=== PATIENT | male | born 1945 | race Caucasian/White ===

== ENCOUNTER 2024-12-21 11:48 | Emergency (ER) | payer OTHER ==
[2024-12-21] MEDS ORDERED: Boostrix 0.5 ML (Tdap) VIAL (>/=7 yrs of age) ONE (12:05)
[2024-12-21] MEDS ORDERED: Lidocaine 1% (PF) 30 ML VIAL ONE (12:13)
[2024-12-21] MEDS ORDERED: Bacitracin 1 PK ONE (12:25)
== END 2024-12-21 12:33 | disposition home or self-care (01) ==
LOC: NAV ERS 11:48
DX: S61.411A Laceration without foreign body of right hand, initial encounter (principal); E78.5 Hyperlipidemia, unspecified; I10 Essential (primary) hypertension; Z23 Encounter for immunization; Z79.82 Long term (current) use of aspirin; Z79.899 Other long term (current) drug therapy; W45.8XXA Other foreign body or object entering through skin, initial encounter
CPT/HCPCS: 12001; 90471; 90715